=== PATIENT | female | born 1995 | race Caucasian/White ===

== ENCOUNTER 2021-03-03 19:54 | Observation (INO) ==
[2021-03-03] MEDS: 0.9 % Sodium Chloride 1,000 ML IVC SCH ×2 (20:23→22:15)
[2021-03-03] MEDS ORDERED: Isovue-370 500 ML BOTTLE IVP ONE (20:26)
[2021-03-03 20:36] LABS: Basophils % 0.2 %; Eosinophils # 0.6 K/mcL (0.0-0.6); Eosinophils % 3.8 %; Hematocrit 38.3 % (35.3-44.9); Hemoglobin 12.7 g/dL (11.5-15.4); Immature Granulocytes % 0.7 % (0-4); Lymphocytes # 2.4 K/mcL (0.6-4.6); Lymphocytes % 14.6 %; Mean Corpuscular HGB Conc 33.2 g/dL (31.6-35.5); Mean Corpuscular Hemoglobin 28.8 pg (28.0-33.3); Mean Corpuscular Volume 86.8 fL (83.0-100.0); Mean Platelet Volume 11.2 fL (9.4-12.4); Monocytes # 0.6 K/mcL (0.0-1.3); Monocytes % 3.5 %; Neutrophils # 12.5 K/mcL (1.6-8.9); Platelet Count 237 K/mcL (140-400); Red Blood Count 4.41 M/mcL (3.82-4.97); Red Cell Distribution Width 13.6 % (11.5-14.5); Segmented Neutrophils % 77.2 %; White Blood Count 16.1 K/mcL (4.3-11.1)
[2021-03-03 21:04] LABS: BUN/Creatinine Ratio 17 (6-26); Blood Urea Nitrogen 10 mg/dL (6-20); Calcium 9.3 mg/dL (8.6-10.3); Carbon Dioxide 21 mEq/L (23-29); Chloride 106 mEq/L (98-107); Glucose 87 mg/dL (70-105); Osmolality,Calculated 282 (280-300); Potassium 3.2 mEq/L (3.5-5.1); Sodium 137 mEq/L (136-145); Troponin I 0.03 ng/mL (< 0.04); eGFR For African Americans > 60 (> 60); eGFR For Non-African Americans > 60 (> 60)
[2021-03-03 21:15] LABS: Thyroid Stimulating Hormone 0.212 mcIU/mL (0.340-5.600)
[2021-03-03] MEDS ORDERED: Albuterol 2.5 MG/3 ML NEBULIZER IH STA (21:41)
[2021-03-03] MEDS ORDERED: Ipratropium/Albuterol Neb 3 ML IH ONE (21:58)
[2021-03-03] MEDS ORDERED: methylPREDNISolone 125 MG/2 ML VIAL IVP ONE (21:59)
[2021-03-03 23:52] LABS: Troponin I < 0.03 ng/mL (< 0.04)
[2021-03-04] MEDS ORDERED: Acetaminophen 325 MG TABLET PO PRN (02:00)
[2021-03-04] MEDS ORDERED: Naloxone 0.4 MG/ML INJ IVP PRN (02:00)
[2021-03-04] MEDS ORDERED: Melatonin 3 MG TABLET PO PRN (02:00)
[2021-03-04] MEDS ORDERED: Loratadine 10 MG TABLET PO PRN (02:03)
[2021-03-04] MEDS: Ringers Solution, Lactated 1,000 ML IVC SCH ×3 (04:01→22:24)
[2021-03-04] MEDS: Levalbuterol Neb 1.25 MG/3 ML IH SCH ×4 (04:38→21:24)
[2021-03-04 04:57] LABS: Alanine Aminotransferase 11 Units/L (7-52); Albumin 3.4 g/dL (3.5-5.7); Albumin/Globulin Ratio 1.4 (1.1-2.2); Alkaline Phosphatase 47 Units/L (34-104); Aspartate Amino Transferase 15 Units/L (13-39); BUN/Creatinine Ratio 15 (6-26); Bilirubin,Total 0.2 mg/dL (0.3-1.0); Blood Urea Nitrogen 8 mg/dL (6-20); Calcium 8.4 mg/dL (8.6-10.3); Carbon Dioxide 15 mEq/L (23-29); Chloride 109 mEq/L (98-107); Globulin 2.5 g/dL (2.4-3.5); Glucose 100 mg/dL (70-105); Magnesium 1.7 mg/dL (1.6-2.6); Osmolality,Calculated 282 (280-300); Potassium 3.1 mEq/L (3.5-5.1); Sodium 137 mEq/L (136-145); Total Protein 5.9 g/dL (6.4-8.9); eGFR For African Americans > 60 (> 60); eGFR For Non-African Americans > 60 (> 60)
[2021-03-04] MEDS ORDERED: Magnesium Sulfate 1 GM/102 ML PIGGYBACK IVPB ONE (06:27)
[2021-03-04 06:45] LABS: Basophils % 0.2 %; Eosinophils % 0.2 %; Hematocrit 32.8 % (35.3-44.9); Immature Granulocytes % 0.6 % (0-4); Lymphocytes # 0.8 K/mcL (0.6-4.6); Lymphocytes % 6.2 %; Mean Corpuscular HGB Conc 32.9 g/dL (31.6-35.5); Mean Corpuscular Hemoglobin 28.9 pg (28.0-33.3); Mean Corpuscular Volume 87.7 fL (83.0-100.0); Mean Platelet Volume 11.7 fL (9.4-12.4); Monocytes # 0.2 K/mcL (0.0-1.3); Monocytes % 1.1 %; Neutrophils # 12.2 K/mcL (1.6-8.9); Platelet Count 196 K/mcL (140-400); Red Blood Count 3.74 M/mcL (3.82-4.97); Red Cell Distribution Width 13.7 % (11.5-14.5); Segmented Neutrophils % 91.7 %; White Blood Count 13.3 K/mcL (4.3-11.1)
[2021-03-04 06:46] LABS: VBG HCO3 17 mEq/L (21-27); VBG PCO2 25 mmHg (41-51); VBG PH 7.44 pH Units (7.32-7.42); VBG PO2 107 mmHg (25-50)
[2021-03-04 06:46] LABS: Hemoglobin 10.8 g/dL (11.5-15.4)
[2021-03-04 07:06] LABS: BUN/Creatinine Ratio 11 (6-26); Blood Urea Nitrogen 5 mg/dL (6-20); Calcium 8.2 mg/dL (8.6-10.3); Carbon Dioxide 15 mEq/L (23-29); Chloride 110 mEq/L (98-107); Glucose 180 mg/dL (70-105); Osmolality,Calculated 280 (280-300); Potassium 3.9 mEq/L (3.5-5.1); Sodium 134 mEq/L (136-145); eGFR For African Americans > 60 (> 60); eGFR For Non-African Americans > 60 (> 60)
[2021-03-04 07:08] LABS: Bilirubin,Urine Negative (Negative); Blood,Urine Negative (Negative); Clarity,Urine Clear (Clear); Color,Urine Light-Yellow (Yellow); Glucose,Urine (UA) 500 mg/dL (Normal); Ketones,Urine 40 mg/dL (Negative); Leukocyte Esterase,Urine Negative (Negative); Mucus,Urine Few per lpf (None-Few); Nitrite,Urine Negative (Negative); Protein,Urine Negative (Neg-Trace); RBC,Urine 0-3 per hpf (0-3); Specific Gravity,Urine 1.019 (1.010-1.025); Squamous Epithelial Cell,Urine Few per hpf (None-Few); Urobilinogen,Urine Normal (Normal); WBC,Urine 0-3 per hpf (0-3)
[2021-03-04] MEDS: Cholecalciferol (D-3) 1,000 UNIT (25MCG) TABLET PO SCH (08:34)
[2021-03-04] MEDS: Famotidine 20 MG TABLET PO SCH (08:34)
[2021-03-04] MEDS: Prenatal Vit/FA 1 EACH TABLET PO SCH (12:45)
[2021-03-04] MEDS ORDERED: Perflutren Lipid Microsphere 1.3 ML in 0.9 % Sodium Chloride 8.7 ML IVP PRN (12:55)
[2021-03-04 14:48] LABS: Triiodothyronine (T3) Free 3.02 pg/mL (2.50-3.90)
[2021-03-04 20:30] LABS: Adenovirus Not Detected (Not Detect); Bordetella Pertussis Not Detected (Not Detect); Chlamydophila pneumoniae Not Detected (Not Detect); Coronavirus 229E Not Detected (Not Detect); Coronavirus HKU1 Not Detected (Not Detect); Coronavirus NL63 Not Detected (Not Detect); Coronavirus OC43 Not Detected (Not Detect); Human Metapneumovirus Not Detected (Not Detect); Human Rhinovirus/Enterovirus Not Detected (Not Detect); Influenza A Subtype 2009 H1 Not Detected (Not Detect); Influenza B Not Detected (Not Detect); Mycoplasma pneumoniae Not Detected (Not Detect); Parainfluenza Virus 1 Not Detected (Not Detect); Parainfluenza Virus 2 Not Detected (Not Detect); Parainfluenza Virus 3 Not Detected (Not Detect); Parainfluenza Virus 4 Not Detected (Not Detect); Respiratory Syncytial Virus Not Detected (Not Detect); SARS-CoV-2 Not Detected (Not Detect)
[2021-03-05 02:25] LABS: Hematocrit 32.2 % (35.3-44.9); Hemoglobin 10.8 g/dL (11.5-15.4); Mean Corpuscular HGB Conc 33.5 g/dL (31.6-35.5); Mean Corpuscular Hemoglobin 29.3 pg (28.0-33.3); Mean Corpuscular Volume 87.5 fL (83.0-100.0); Mean Platelet Volume 11.2 fL (9.4-12.4); Platelet Count 185 K/mcL (140-400); Red Blood Count 3.68 M/mcL (3.82-4.97); Red Cell Distribution Width 14.4 % (11.5-14.5); White Blood Count 10.9 K/mcL (4.3-11.1)
[2021-03-05 02:31] LABS: VBG HCO3 19 mEq/L (21-27); VBG PCO2 28 mmHg (41-51); VBG PH 7.45 pH Units (7.32-7.42); VBG PO2 150 mmHg (25-50)
[2021-03-05 02:48] LABS: BUN/Creatinine Ratio 13 (6-26); Blood Urea Nitrogen 6 mg/dL (6-20); Calcium 7.9 mg/dL (8.6-10.3); Carbon Dioxide 19 mEq/L (23-29); Chloride 110 mEq/L (98-107); Glucose 93 mg/dL (70-105); Magnesium 1.8 mg/dL (1.6-2.6); Osmolality,Calculated 279 (280-300); Phosphorous 2.9 mg/dL (2.7-4.5); Potassium 3.7 mEq/L (3.5-5.1); Sodium 136 mEq/L (136-145); eGFR For African Americans > 60 (> 60); eGFR For Non-African Americans > 60 (> 60)
[2021-03-05] MEDS: Levalbuterol Neb 1.25 MG/3 ML IH SCH ×2 (03:41→10:18)
[2021-03-05] MEDS: Famotidine 20 MG TABLET PO SCH (04:50)
[2021-03-05 06:27] VITALS: BP 106/70
[2021-03-05] MEDS: Cholecalciferol (D-3) 1,000 UNIT (25MCG) TABLET PO SCH (06:34)
[2021-03-05] MEDS: Prenatal Vit/FA 1 EACH TABLET PO SCH (06:34)
[2021-03-05] MEDS: Ringers Solution, Lactated 1,000 ML IVC SCH (06:35)
== END 2021-03-05 10:50 | disposition home or self-care (01) ==
LOC: EMEROOARM 19:54 → CDU 19:54 → 3BNU 03-04 18:11
PROVIDERS: ADMIT Internal Medicine; ATTEND Internal Medicine